=== PATIENT | female | born 1960 ===

== ENCOUNTER 2017-12-19 15:28 | Emergency (ER) | payer OTHER ==
[2017-12-19 15:52] VITALS: BP 130/74
[2017-12-19] MEDS ORDERED: Tetan/Diph/Pertus SYR(Tdap)* 0.5 ML SYR(BOOSTRIX) use SYR IM ONE (16:08)
--- NOTE | 2017-12-19 16:55 | UC ---
Skin Complaint HPI - HPI Summary HPI Summary: Patient presents to the with a request for a TD Update. She states she sustained an injury to her index finger approximately 1 hour prior to arrival when she pinched the finger in between 2 chairs and sustained a slight avulsion to the skin through one of the chairs which showed rest. She is concerned over tetanus. Denies any symptoms or complaints at this time. Denies any fevers. Other immunizations are up-to-date. There is no erythema or warmth around the area. Avulsion measures 0.4 cm. - History of Current Complaint Chief Complaint: UCUpperExtremity Time Seen by Provider: 12/19/17 16:02 Stated Complaint: FINGER INJURY Hx Obtained From: Patient ?: No Onset/Duration: Sudden Onset Skin Exposure Onset/Duration: Hours Ago Timing: Constant Onset Severity: Mild Current Severity: None Pain Intensity: 0 Pain Scale Used: 0-10 Numeric Location: Hand (Left) Aggravating Factor(s): Nothing Alleviating Factor(s): Nothing Associated Signs & Symptoms: Positive: Negative Related History: Trauma - Allergy/Home Medications Allergies/Adverse Reactions: Allergies Allergy/AdvReac Type Severity Reaction Status Date / Time acetaminophen Allergy Agitation Verified 12/19/17 15:54 aspirin Allergy Unknown Verified 12/19/17 15:54 Reaction Details erythromycin base Allergy Itching Verified 12/19/17 15:54 Penicillins Allergy Hives Verified 12/19/17 15:54 Sulfa (Sulfonamide Allergy Hives Verified 12/19/17 15:54 Antibiotics) Home Medications: Home Medications Albuterol Sulfate [Proventil Hfa] 1 puff PO Q4H PRN 12/19/17 [History Confirmed 12/19/17] Fluticasone NASAL SPRAY 50MCG* [Flonase NASAL SPRAY 50MCG*] 1 spray NASAL DAILY 12/19/17 [History Confirmed 12/19/17] Multivit with Calcium,Iron,Min [Multivitamins [id number]] 1 tab PO DAILY [History Confirmed 12/19/17] Review of Systems Constitutional: Negative Skin: Other - 0.4CM avulsion ENT: Negative Cardiovascular: Negative Gastrointestinal: Negative Motor: Negative Neurovascular: Negative Musculoskeletal: Negative Is Patient Immunocompromised?: No All Other Systems Reviewed And Are Negative: Yes PMH/Surg Hx/FS Hx/Imm Hx Previously Healthy: Yes - Surgical History Surgical History: Yes Surgery Procedure, Year, and Place: tonsils, ulnar radial nerve, d&c, hysterectomy - Family History Known Family History: Positive: Unknown - Social History Occupation: Employed Full-time Lives: With Family Alcohol Use: Rare Substance Use Type: None Smoking Status (MU): Never Smoked Tobacco - Immunization History Most Recent Tetanus Shot: 2008 Physical Exam Triage Information Reviewed: Yes Appearance: Well-Appearing, Well-Nourished Vital Signs: Initial Vital Signs Temp 97.3 F 12/19/17 15:34 Pulse 60 12/19/17 15:34 Resp 18 12/19/17 15:34 BP 130/74 12/19/17 15:34 Pulse Ox 98 12/19/17 15:34 Vital Signs Reviewed: Yes Eye Exam: Normal Neck exam: Normal Neck: Positive: Supple Respiratory Exam: Normal Respiratory: Positive: Chest non-tender Cardiovascular Exam: Normal Musculoskeletal Exam: Normal Musculoskeletal: Positive: Strength Intact Neurological: Positive: Alert Psychological Exam: Normal Psychological: Positive: Normal Response To Family Skin: Positive: Other - 0.4 cm avulsion to the left index Course/Dx - Course Course Of Treatment: 0.4 cm avulsion to the left index finger which does not require suturing. The area was cleansed thoroughly at the nurse's office prior to coming to the . Tetanus booster updated. Nothing further. - Diagnoses Provider Diagnoses: Skin avulsion left index, TdAP updated Discharge - Sign-Out/Discharge Documenting (check all that apply): Discharge/Admit/Transfer - Discharge Plan Condition: Stable Disposition: HOME Patient Education Materials: Diphtheria/Pertussis/Tetanus Vaccine (By injection ) Referrals: No Primary Care Phys,NOPCP [Primary Care Provider] - - Billing Disposition and Condition Condition: STABLE Disposition: HOME
== END 2017-12-19 21:35 | disposition home or self-care (01) ==
LOC: UCEAST 15:28
DX: S61.201A Unspecified open wound of left index finger without damage to nail, initial encounter (principal); W23.0XXA Caught, crushed, jammed, or pinched between moving objects, initial encounter; Y93.9 Activity, unspecified; Y92.9 Unspecified place or not applicable; Z23 Encounter for immunization; Z88.6 Allergy status to analgesic agent; Z88.1 Allergy status to other antibiotic agents; Z88.0 Allergy status to penicillin; Z88.2 Allergy status to sulfonamides
CPT/HCPCS: 90471; 90715; 99202; G0463